=== PATIENT | male | born 1970 | race Caucasian/White ===

== ENCOUNTER → 2020-11-01 | Day surgery (SDC) | payer SELFPAY ==
[~2020-11-01] MED LIST: Dexamethasone 4 MG/ML 5 ML MDV ONE; HYDROmorphone 0.5 MG/0.5 ML Syringe IVPUSH PRN; Ketorolac 30 MG/ML SDV IVPUSH SCH; Lidocaine 1% 4 ML ONE; Lidocaine 1%/Sod Bicarbonate in NS 8.4% 1 ML Syringe IDERM PRN; Midazolam 1 MG/ML 2 ML SDV ONE; Ondansetron 4 MG/2 ML SDV ONE; Propofol 200 MG/20 ML SDV ONE; Sodium Chloride 0.9% 10 ML Syringe FLUSH PRN; ceFAZolin 1 GM Vial ONE; fentaNYL 100 MCG/2 ML SDV IVPUSH PRN; fentaNYL 250 MCG/5 ML SDV ONE; oxyCODONE 5 MG Tab PO SCH
[2020-11-01] MEDS: Bupivacaine 0.5% 30 ML SDV ONE ×2 (07:45→08:26)
--- NOTE | 2020-11-01 07:56 | PCM.PREANE ---
Preanesthetic Assessment - Procedure Proposed Procedure: Umbilical hernia repair - Anesthesia/Transfusion/Family Hx Anesthesia History: Prior Anesthesia Without Reaction - Review of Systems General: No Symptoms Pulmonary: No Symptoms Cardiovascular: No Symptoms Gastrointestinal: No Symptoms Neurological: No Symptoms Other: Reports: None - Physical Assessment NPO Status Date: 10/31/20 NPO Status Time: 22:00 Vital Signs: Last Vital Signs Temp 96.7 F L 11/01/20 07:33 Pulse 90 11/01/20 07:33 Resp 16 11/01/20 07:33 BP 139/90 11/01/20 07:33 Pulse Ox Height: 1.83 m Weight: 102.4 kg ASA Class: 2 Mental Status: Alert & Oriented x3 Airway Class: Mallampati = 2 Dentition: Reports: Normal Dentition Thyro-Mental Finger Breadths: 3 Mouth Opening Finger Breadths: 3 ROM/Head Extension: Full Lungs: Clear to Auscultation, Normal Respiratory Effort, Decreased Breath Sounds (bases) Cardiovascular: Regular Rate, Regular Rhythm - Allergies Allergies/Adverse Reactions: Allergies Allergy/AdvReac Type Severity Reaction Status Date / Time codeine Allergy Nausea Verified 11/01/20 07:33 - Acknowledgements Anesthesia Type Planned: General Anesthesia, Regional Block (possible TAP block after surgery for postoperative pain control), MAC Pt an Appropriate Candidate for the Planned Anesthesia: Yes Alternatives and Risks of Anesthesia Discussed w Pt/Guardian: Yes Pt/Guardian Understands and Agrees with Anesthesia Plan: Yes PreAnesthesia Questionnaire HEENT History: Cardiovascular History: Reports: Hypertension Respiratory History: Reports: Other (See Below) Other Respiratory History: CHRONIC BRONCHITIS, COUGH, LOWER RESPIRATORY INFECTION Gastrointestinal History: Reports: Chronic Diarrhea, GERD Genitourinary History: Reports: Renal Calculus [employer] History: Reports: None Musculoskeletal History: Reports: None Neurological History: Reports: Other (See Below) Other Neuro History: DIZZINESS Psychiatric History: Reports: None Endocrine/Metabolic History: Reports: Other (See Below) Other Endocrine/Metabolic History: THYROID DYSFUNCTION Hematologic History: Reports: None Immunologic History: Reports: None Oncologic (Cancer) History: Reports: None Dermatologic History: Reports: None - Infectious Disease History Infectious Disease History: Reports: None - Past Surgical History Head Surgeries/Procedures: Reports: None HEENT Surgical History: Reports: Tonsillectomy Cardiovascular Surgical History: Reports: None Respiratory Surgical History: Reports: None GI Surgical History: Reports: None Female Surgical History: Reports: None Male Surgical History: Reports: None Endocrine Surgical History: Reports: None Neurological Surgical History: Reports: None Musculoskeletal Surgical History: Reports: None Dermatological Surgical History: Reports: None - SUBSTANCE USE Tobacco Use Status *Q: Former Tobacco User Recreational Drug Use History: No - HOME MEDS Home Medications: Home Meds Albuterol Sulfate 1 dose NEB Q4H PRN 10/31/20 [History] Albuterol Sulfate [Proair Hfa] 1 - 2 puff INH Q4H PRN 10/31/20 [History] Levothyroxine Sodium [Levothyroxine] 145 mcg PO DAILY 10/31/20 [History] Loperamide [Imodium] 2 mg PO ASDIRECTED PRN 10/31/20 [History] Olmesartan Medoxomil [Benicar] 40 mg PO DAILY 10/31/20 [History] Omeprazole Magnesium [Prilosec Otc] 20 mg PO DAILY 10/31/20 [History] Spironolactone [Aldactone] 25 mg PO DAILY 10/31/20 [History] amLODIPine Besylate [Norvasc] 10 mg PO DAILY 10/31/20 [History] - CURRENT (IN HOUSE) MEDS Current Meds: Current Medications Lactated Ringer's (Ringers, Lactated) 1,000 mls @ 125 mls/hr IV ASDIRECTED CHANTELLE Lidocaine/Sodium Bicarbonate (Buffered Lidocaine 1% In Ns 8.4%) 0.25 ml IDERM ONETIME PRN PRN Reason: Prior to IV Start Sodium Chloride (Saline Flush) 10 ml FLUSH ASDIRECTED PRN PRN Reason: Keep Vein Open Discontinued Medications Bupivacaine HCl (Marcaine 0.5%) Confirm Administered Dose 30 ml .ROUTE .STK-MED ONE Stop: 11/01/20 07:15 Fentanyl (Sublimaze) Confirm Administered Dose 250 mcg .ROUTE .STK-MED ONE Stop: 11/01/20 07:30 Midazolam HCl (Versed 1 Mg/Ml) Confirm Administered Dose 2 mg .ROUTE .STK-MED ONE Stop: 11/01/20 07:30 Propofol (Diprivan 20 Ml) Confirm Administered Dose 400 mg .ROUTE .STK-MED ONE Stop: 11/01/20 07:30
[2020-11-01] MEDS: Lactated Ringers 1,000 ML IV SCH ×2 (08:11→08:12)
--- NOTE | 2020-11-01 09:17 | PCM.PRNOTE ---
- Free Text/Narrative Note: Date: 11/01/2020 Operation: open umbilical hernia repair with mesh patch Surgeon: Herbie Urrutia MD Antibiotic: 2 g ancef IV EBL: 5 cc Local anesthetic: 30 cc 0.5% marcaine Findings: small fat containing umbilical hernia with defect measuring about 1 cm. Coated permanent mesh patch underlay placed to reinforce primary closure of fascial defect. Detailed Report: The patient was taken to the operating room and placed in supine position. Timeout was performed, and monitored anesthesia care initiated. The abdominal hair was clipped, and abdomen prepped and draped in usual sterile fashion. A longitudinal periumbilical incision measuring 5 cm was made through skin down to subcutaneous tissue. The umbilical stalk was dissected circumferentially. Monopolar energy was used to divide the stalk after reduction of the hernia contents. On entry into the hernia sac, there appeared to be omental fat contents which was reducible. Some of the omental fat was resected, and fascial edges were cleaned. The hernia sac was removed from its attachments to the umbilical skin. A small ventral light patch measuring 4-1/2 cm was introduced into the field. This was placed intraperitoneally, and secured to the edges of the fascia with 0 Vicryl suture. The fascial defect was then closed primarily in transverse orientation with 3 interrupted 0 Vicryl sutures. The umbilicus was then sutured down at the level of the fascia with a 3-0 Vicryl suture. Deep dermal interrupted Vicryl sutures were placed to reapproximate the skin edges, and skin was closed with a running subcuticular Vicryl stitch. The wound was dressed with Dermabond. The patient tolerated the procedure well, and was transferred to PACU for routine postanesthesia care prior to anticipated discharge home.
--- NOTE | 2020-11-01 11:10 | PCM48HPAN ---
Post Anesthesia Note - EVALUATION WITHIN 48HRS OF ANESTHETIC Vital Signs in Normal Range: Yes Patient Participated in Evaluation: Yes Respiratory Function Stable: Yes Airway Patent: Yes Cardiovascular Function Stable: Yes Hydration Status Stable: Yes Pain Control Satisfactory: Yes Nausea and Vomiting Control Satisfactory: Yes Mental Status Recovered: Yes Vital Signs: Last Vital Signs Temp 97.3 F 11/01/20 10:00 Pulse 71 11/01/20 10:00 Resp 16 11/01/20 10:00 BP 124/93 H 11/01/20 10:00 Pulse Ox 97 11/01/20 10:00
== END | disposition home or self-care (01) ==
LOC: JD.SDS 07:01
PROVIDERS: ATTEND Surgery
DX: K42.9 Umbilical hernia without obstruction or gangrene (principal); I10 Essential (primary) hypertension; K21.9 Gastro-esophageal reflux disease without esophagitis; F17.290 Nicotine dependence, other tobacco product, uncomplicated; Z88.5 Allergy status to narcotic agent; Z79.899 Other long term (current) drug therapy; Z98.890 Other specified postprocedural states
CPT/HCPCS: 49585; 93005; A9270; C1781; J0690; J1100; J1170; J1885; J2001; J2250; J2405; J2704; J3010; J3490; J7120; 00750